=== PATIENT | male | born 1970 | race Caucasian/White ===

== ENCOUNTER → 2020-12-06 | Outpatient (REF) ==
--- NOTE | 2020-12-06 11:27 | Diagnostic Imaging Report ---
INDICATION: Right knee injury from a fall. 3 views of the right knee show no fracture, dislocation or other acute abnormalities. There are some degenerative changes with joint space narrowing of the medial tibiofemoral joint compartment. There are osteophytes forming at the medial articular margin. There are also some degenerative changes of the patellofemoral joint. IMPRESSION: Moderate degenerative changes of the medial tibiofemoral joint compartment. Mild degenerative changes of the patellofemoral joint. No acute abnormality seen. Dictated by: Dictated on workstation # [id number]
== END ==
LOC: OCC 11:14
PROVIDERS: ATTEND Nurse Practitioner Family
DX: S89.91XA Unspecified injury of right lower leg, initial encounter (principal); M17.11 Unilateral primary osteoarthritis, right knee; W19.XXXA Unspecified fall, initial encounter
CPT/HCPCS: 73562

== ENCOUNTER → 2020-12-06 | Outpatient (REF) ==
--- NOTE | 2020-12-06 19:25 | Diagnostic Imaging Report ---
EXAMINATION: Magnetic resonance imaging of the right knee without intravenous contrast DATE: December 06, 2020. COMPARISON: Right knee radiographs December 06, 2020. INDICATION: 50-year-old male, right knee pain after fall. TECHNIQUE: Multiplanar, multisequence non contrast enhanced MR imaging was accomplished. FINDINGS: MENISCI: There is an oblique tear involving the anterior horn, body, and posterior horn of the medial meniscus. There is roughly 50% volume loss of the body and posterior horn of the medial meniscus. The lateral meniscus is intact. LIGAMENTS AND TENDONS: The anterior and posterior cruciate ligaments are intact. The medial collateral ligament is intact. The iliotibial band, mid third lateral capsular ligament, fibular collateral ligament, biceps femoris tendon and conjoined tendon are intact. The quadriceps tendon and patella ligament are intact. JOINT: There are broad areas of full-thickness cartilage loss of the medial compartment with [id number] articulation. There is a small knee joint effusion without identified intra-articular body or prominent synovitis. BONE: There is degenerative related marrow edema adjacent to the medial compartment. There is no acute fracture. Edema-like signal in the region of the anterior aspect of the proximal tibia underlying the tibial spines may be mechanically related or secondary to a bone contusion. There is no evidence of osteonecrosis. BURSAE AND SOFT TISSUES: There is no Parisi's cyst. There is a multiloculated ganglion cyst adjacent to the femoral attachment site of the medial head of gastrocnemius measuring 2.9 x 1.3 x 2.0 cm in size. There is nonspecific prepatellar subcutaneous edema. IMPRESSION: 1. Oblique tear involving the entire medial meniscus with roughly 50% volume loss of the body and posterior horn of the medial meniscus. 2. Intact lateral meniscus. 3. Intact anterior and posterior cruciate ligaments. Additional ligaments and tendons are intact. 4. Severe medial compartment osteoarthritis with small knee joint effusion. No identified intra-articular body or prominent synovitis. 5. Edema-like signal in the proximal tibia underlying the tibial spines may be mechanically related or secondary to bone contusion. No acute fracture or evidence of osteonecrosis. Dictated by: Dictated on workstation # [id number]
== END ==
LOC: OCC 14:37
PROVIDERS: ATTEND Nurse Practitioner Family
DX: S83.241A Other tear of medial meniscus, current injury, right knee, initial encounter (principal); M25.461 Effusion, right knee; M17.11 Unilateral primary osteoarthritis, right knee; W19.XXXA Unspecified fall, initial encounter
CPT/HCPCS: 73721